=== PATIENT | female | born 1955 | race African-American/Black ===

== ENCOUNTER 2023-04-15 03:54 | Day surgery (SDC) | payer OTHER ==
[2023-04-14 11:29] VITALS: BMI 23.8
[2023-04-15] MEDS ORDERED: LIDOCAINE HCL/PF 2% SDV 5ML VIAL ONE (09:38)
[2023-04-15] MEDS ORDERED: MIDAZOLAM HCL 2 MG/2 ML SINGLE DOSE VIAL ONE (09:39)
[2023-04-15] MEDS ORDERED: PROPOFOL 20 ML ONE (09:39)
[2023-04-15] MEDS ORDERED: KETOROLAC TROMETHAMINE 30 MG/1 ML VIAL ONE (11:12)
[2023-04-15] MEDS ORDERED: ceFAZolin SODIUM 1 GM VIAL ONE (11:12)
[2023-04-15] MEDS ORDERED: ONDANSETRON 4 MG/2 ML VIAL ONE (11:12)
[2023-04-15] MEDS ORDERED: DEXAMETHASONE SOD PHOSPHATE 4 MG/1 ML VIAL ONE (11:12)
[2023-04-15] MEDS ORDERED: ceFAZolin SODIUM 1 GM VIAL IVPB ONE (11:14)
[2023-04-15] MEDS ORDERED: LIDOCAINE HCL 1%, 10 MG/ML (50 mL VIAL) INF ONE (11:21)
[2023-04-15] MEDS ORDERED: ACETAMINOPHEN 325 MG TABLET (FP) PO PRN (12:18)
[2023-04-15] MEDS ORDERED: ONDANSETRON 4 MG/2 ML VIAL IVPUSH PRN (12:18)
[2023-04-15] MEDS ORDERED: oxyCODONE HCL 5 MG TABLET PO PRN (12:18)
[2023-04-15] MEDS ORDERED: ACETAMINOPHEN 1000 MG/100 ML BAG IVPB PRN (12:19)
[2023-04-15] MEDS ORDERED: LACTATED RINGERS SOLUTION 1,000 ML IV SCH (12:30)
[2023-04-15] MEDS ORDERED: ACETAMINOPHEN INJECTION 100 ML IVPB ONE (12:58)
[2023-04-15] MEDS ORDERED: oxyCODONE HCL 5 MG TABLET ONE (13:54)
[2023-04-15] MEDS ORDERED: oxyCODONE HCL 5 MG TABLET PO ONE (13:55)
[2023-04-15 14:06] VITALS: RESP 16
[2023-04-15 14:58] VITALS: BP 118/75; PULSE 70; TEMP 97.6
== END 2023-04-15 15:40 | disposition home or self-care (01) ==
LOC: JASU-SURG 03:54
PROVIDERS: ATTEND Surgery
PROC: 0HBT0ZZ Excision of Right Breast, Open Approach (ICD-10-PCS; principal; 2023-04-15 10:30)
DX: C50.911 Malignant neoplasm of unspecified site of right female breast (principal)
CPT/HCPCS: 19281; 76098-TC-FY; 82962; 88307-TC; 94760; A4648